=== PATIENT | male | born 1955 | race Caucasian/White ===

== ENCOUNTER 2020-11-06 14:29 | Emergency (ER) | payer MEDICARE ==
[~2020-11-06] VITALS: Ht 185.4 cm; Wt 145.0 kg
[2020-11-06 14:34] VITALS: BP 164/67
[2020-11-06] MEDS ORDERED: LIDOCAINE 2% JELLY 10ML IN APPLICATOR. MM ONE (14:45)
[2020-11-06] MEDS ORDERED: oxyCODONE/APAP 5/325 1 TAB TABLET PO ONE (14:45)
--- NOTE | 2020-11-06 15:18 | PHYS DOC ---
Past History Past Medical History: Cancer, Other Additional Past Medical Histor: colon cancer Past Surgical History: Colectomy Alcohol Use: None Adult General Chief Complaint Chief Complaint: BLOOD IN URINE [facility] HPI Patient is a 65-year-old male who presents to the emergency room complaining of bleeding from his urethra. Patient states that that they replace his Washburn yesterday and had a difficult time getting it in. He started having quite a bit of pain and bleeding and they took the catheter out. He continues to have a large amount of pain and continues to have bleeding from his urethra. He has some lower abdominal pressure. He is not urinated. He denies any other complaints or trauma. Review of Systems Review of Systems Complete ROS is negative unless otherwise documented in HPI Current Medications Current Medications Current Medications Medications (Trade) Dose Ordered Sig/Jayro Start Time Stop Time Status Last Admin Dose Admin Lidocaine HCl (Uro-Jet) 1 elian 1X ONCE 11/06/20 14:45 11/06/20 14:46 DC Oxycodone/ Acetaminophen (Percocet 5/325) 1 tab 1X ONCE 11/06/20 14:45 11/06/20 14:46 DC Allergies Allergies Allergies Coded Allergies Type Severity Reaction Last Updated Verified No Known Drug Allergies 11/06/20 No Physical Exam Physical Exam General: Awake, alert, NAD. Well Nourished, well hydrated. Cooperative HEENT: Atraumatic, EOMI, PERRL, airway patent, moist oral mucosa Neck: Supple, trachea midline Respiratory: CTA bilaterally, normal effort, no wheezing/crackles CV: RRR, no murmur, cap refill <2 GI: Soft, nondistended, nontender, no masses : blood at meatus, testicles WNL MSK: No obvious deformities Skin: Warm, dry, intact Neuro: A&O x3, speech NL, sensory and motor grossly intact, no focal deficits Psych: Normal affect, normal mood, not suicidal or homicidal Current Patient Data Vital Signs Vital Signs Date Time Temp Pulse Resp B/P (MAP) Pulse Ox O2 Delivery O2 Flow Rate FiO2 11/06/20 14:34 99.0 75 24 164/67 (99) 94 Room Air EKG EKG [] Radiology/Procedures Radiology/Procedures [] Heart Score Risk Factors: Risk Factors: DM, Current or recent (<one month) smoker, HTN, HLP, family history of CAD, obesity. Risk Scores: Risk Factors: DM, Current or recent (<one month) smoker, HTN, HLP, family hist ory of CAD, obesity. Course & Med Decision Making Course & Med Decision Making Pertinent Labs and Imaging studies reviewed. (See chart for details) Patient is a 65-year-old male who presents to the emergency room complaining of pain and bleeding after a catheter was taken out. Is likely that he had a traumatic removal and is bleeding from this. It is less likely that he is having bleeding from the bladder. Patient does take Eliquis which likely is part of the reason patient is having so much bleeding. Will replace the patient's Washburn to determine if he is having bleeding from the bladder and to treat any urethral injury. Catheter was replaced and urine cleared. No bleeding around catheter. Patient's test results and vitals while in the ED were fully reviewed and discussed with the patient. Patient is stable and at this time does not need admission to the hospital. We have discussed strict return precautions and the importance of following up with their Primary Care Physician. Patient stated understanding and was given an opportunity to ask any questions. Patient is in agreement with plan. Dragon Disclaimer Dragon Disclaimer This electronic medical record was generated, in whole or in part, using a voice recognition dictation system. Departure Departure: Impression: Primary Impression: Bleeding from urethra in male Disposition: 01 DC HOME SELF CARE/HOMELESS Condition: IMPROVED Referrals: PCP,UNKNOWN (PCP) Patient Instructions: Indwelling Urinary Catheter Care-Brief JOSEPH ROBERTS MD Nov 06, 2020 15:18
== END 2020-11-06 17:09 | disposition home or self-care (01) ==
LOC: ER 14:29
DX: N36.8 Other specified disorders of urethra (principal); Z90.49 Acquired absence of other specified parts of digestive tract
CPT/HCPCS: 51702; 99284

== ENCOUNTER → 2020-11-17 | Emergency (ER) | payer MEDICARE ==
[~2020-11-17] VITALS: Ht 185.4 cm; Wt 145.0 kg
[~2020-11-17] MED LIST: IV NORMAL SALINE 1,000ML 1,000 ML IV ONE; LIDOCAINE 2% JELLY 10ML IN APPLICATOR. MM ONE; MAGNESIUM SULFATE 2GM 50 ML IV ONE; ONDANSETRON PF 4 MG/2 ML VIAL. IVP ONE; ONDANSETRON PF 4 MG/2 ML VIAL. ONE
[2020-11-17 08:04] LABS: CALCIUM 9.4 mg/dL (8.5-10.1); CREATININE 0.9 mg/dL (0.7-1.3); GFR 84.2; POTASSIUM 4.3 mmol/L (3.5-5.1)
[2020-11-17 08:05] LABS: BASO % 1 % (0-3); EOS # 0.1 x10^3/uL (0.0-0.7); EOS % 3 % (0-3); HEMATOCRIT 41.4 % (39.0-53.0); HEMOGLOBIN 13.2 g/dL (13.0-17.5); LYMPH # 0.8 x10^3/uL (1.0-4.8); LYMPH % 15 % (24-48); MEAN CORPUSCULAR HEMOGLOBIN 25 pg (25-35); MEAN CORPUSCULAR HGB CONC 32 g/dL (31-37); MEAN CORPUSCULAR VOLUME 80 fL (79-100); MONO # 0.5 x10^3/uL (0.0-1.1); MONO % 8 % (0-9); NEUT # 4.2 x10^3uL (1.8-7.7); NEUT % 74 % (31-73); PLATELET COUNT 309 x10^3/uL (140-400); RED BLOOD COUNT 5.18 x10^6/uL (4.30-5.70); WHITE BLOOD COUNT 5.7 x10^3/uL (4.0-11.0)
[2020-11-17 08:10] LABS: ALBUMIN 2.8 g/dL (3.4-5.0); ALBUMIN/GLOBULIN RATIO 0.7 (1.0-1.7); MAGNESIUM 1.6 mg/dL (1.8-2.4); TOTAL BILIRUBIN 0.4 mg/dL (0.2-1.0); TOTAL PROTEIN 7.1 g/dL (6.4-8.2)
--- NOTE | 2020-11-17 08:41 | PHYS DOC ---
Past History Past Medical History: Cancer, Other Additional Past Medical Histor: colon cancer, chronic indwelling catheter Past Surgical History: Colectomy Additional Past Surgical Histo: bone infection in back, bone removed. Alcohol Use: None General Adult EDM: Chief Complaint: URINE CATHETER PROBLEM HPI: HPI: Patient is a 65 year old male who presents with right sided flank pain and bleeding from his indwelling catheter. He was in the ED on 11/06/20 for complaint of bleeding from his catheter. His catheter replaced during this visit, it has not been exchanged since that time. He reports that he has had continued bleeding through and around his catheter since this time. The bleeding around his catheter worsened this morning. He is on blood thinner (eloquis). This morning he developed acute onset of 9/10 right sided flank pain that he described as dull and aching in nature. He has a difficult time localizing any associated pain due to loss of sensation second to lumbar disc removal. He has an ostomy s/p colectomy for colon cancer. Approximately 6 weeks ago he had surgery on his hip for an infection in the bone at and has been on daily IV antibiotics since that time. He denies current fever of chills, nausea, vomiting, chest pain, palpitations, shortness of breath, cough. Review of Systems: Review of Systems: Constitutional: Denies fever or chills HENT: Denies nasal congestion or sore throat Respiratory: Denies cough or shortness of breath Cardiovascular: Denies chest pain or palpitations GI: Denies abdominal pain, nausea, or vomiting : Unable to report sensation of dysuria. Endorses hematuria Musculoskeletal: Endorses back pain, hip pain. Denies other joint pain Integument: Denies rash or skin lesions Neurologic: Denies headache, or new focal weakness or sensory changes Complete systems were reviewed and found to be within normal limits, except as documented in this note. Current Medications: Current Meds: Current Medications Medications (Trade) Dose Ordered Sig/[facility] Start Time Stop Time Status Last Admin Dose Admin Fentanyl Citrate (Fentanyl 2ml Vial) 50 mcg 1X ONCE 11/17/20 08:00 11/17/20 08:03 DC 11/17/20 08:09 50 MCG Lidocaine HCl (Uro-Jet) 1 elian 1X ONCE 11/17/20 08:15 11/17/20 08:19 DC 11/17/20 08:23 1 ELIAN Magnesium Sulfate 50 ml @ 25 mls/hr 1X ONCE 11/17/20 08:15 11/17/20 10:14 11/17/20 08:24 25 MLS/HR Ondansetron HCl (Zofran) 4 mg STK-MED ONCE 11/17/20 08:13 11/17/20 08:13 DC Sodium Chloride 1,000 ml @ 1,000 mls/hr 1X ONCE 11/17/20 07:45 11/17/20 08:44 11/17/20 08:09 1,000 MLS/HR Allergies: Allergies: Allergies Coded Allergies Type Severity Reaction Last Updated Verified ciprofloxacin Allergy Unknown Swelling 11/17/20 Yes Physical Exam: PE: Constitutional: Well developed, overweight, mild distress due to main, non-toxic appearance HENT: Normocephalic, atraumatic Eyes: PERRL, EOMI, conjunctiva normal, no discharge Neck: no tenderness, supple Lungs & Thorax: No respiratory distress, equal chest rise and fall Abdomen: Soft, no tenderness Skin: Warm, dry, no erythema, no rash Back: R flank tenderness, unable to examine for CVA tenderness Extremities: No tenderness, warm, no edema, 2+ posterior tibal pulse b/l Neurologic: Alert and oriented X 3, normal motor function, normal sensory function, no focal deficits noted Psychologic: Affect normal, judgment normal Current Patient Data: Labs: Laboratory Tests Test 11/17/20 07:40 11/17/20 07:53 White Blood Count 5.7 x10^3/uL (4.0-11.0) Red Blood Count 5.18 x10^6/uL (4.30-5.70) Hemoglobin 13.2 g/dL (13.0-17.5) Hematocrit 41.4 % (39.0-53.0) Mean Corpuscular Volume 80 fL (79-100) Mean Corpuscular Hemoglobin 25 pg (25-35) Mean Corpuscular Hemoglobin Concent 32 g/dL (31-37) Red Cell Distribution Width 23.0 % (11.5-14.5) H Platelet Count 309 x10^3/uL (140-400) Neutrophils (%) (Auto) 74 % (31-73) H Lymphocytes (%) (Auto) 15 % (24-48) L Monocytes (%) (Auto) 8 % (0-9) Eosinophils (%) (Auto) 3 % (0-3) Basophils (%) (Auto) 1 % (0-3) Neutrophils # (Auto) 4.2 x10^3uL (1.8-7.7) Lymphocytes # (Auto) 0.8 x10^3/uL (1.0-4.8) L Monocytes # (Auto) 0.5 x10^3/uL (0.0-1.1) Eosinophils # (Auto) 0.1 x10^3/uL (0.0-0.7) Basophils # (Auto) 0.0 x10^3/uL (0.0-0.2) Prothrombin Time 9.9 SEC (9.4-11.4) Prothrombin Time INR 1.0 (0.9-1.1) Activated Partial Thromboplast Time 28 SEC (23-33) Sodium Level 137 mmol/L (136-145) Potassium Level 4.3 mmol/L (3.5-5.1) Chloride Level 101 mmol/L (98-107) Carbon Dioxide Level 30 mmol/L (21-32) Anion Gap 6 (6-14) Blood Urea Nitrogen 20 mg/dL (8-26) Creatinine 0.9 mg/dL (0.7-1.3) Estimated GFR (Cockcroft-Gault) 84.2 BUN/Creatinine Ratio 22 (6-20) H Glucose Level 106 mg/dL (70-99) H Calcium Level 9.4 mg/dL (8.5-10.1) Magnesium Level 1.6 mg/dL (1.8-2.4) L Total Bilirubin 0.4 mg/dL (0.2-1.0) Aspartate Amino Transferase (AST) 20 U/L (15-37) Alanine Aminotransferase (ALT) 23 U/L (16-63) Alkaline Phosphatase 153 U/L (46-116) H Total Protein 7.1 g/dL (6.4-8.2) Albumin 2.8 g/dL (3.4-5.0) L Albumin/Globulin Ratio 0.7 (1.0-1.7) L Lactic Acid Level 0.9 mmol/L (0.4-2.0) Vital Signs: Vital Signs Date Time Temp Pulse Resp B/P (MAP) Pulse Ox O2 Delivery O2 Flow Rate FiO2 11/17/20 08:09 26 95 11/17/20 07:35 98.1 62 150/75 (100) EKG: EKG: [] Radiology/Procedures: Radiology/Procedures: PROCEDURE: CT ABDOMEN PELVIS WO CONTRAST PQRS Compliance Statement: One or more of the following individualized dose reduction techniques were utilized for this examination: 1. Automated exposure control 2. Adjustment of the mA and/or kV according to patient size 3. Use of iterative reconstruction technique CT ABDOMEN+PELVIS WO Clinical Indication: Reason: right flank pain, hematuria Comparison: None. Technique: Helical CT imaging of the abdomen and pelvis is performed without IV or oral contrast. Findings: Evaluation of solid organs and bowel is limited without oral and IV contrast, decreasing sensitivity for detection of pathology. Lung bases are mostly clear. Cardiac size is normal. Layering hyperdensity in the gallbladder may be tiny stones or sludge. No gallbladder wall thickening. The liver, spleen, pancreas, adrenal glands, and abdominal aorta caliber are normal. There is bilateral perinephric stranding. There is no renal or ureteral calculus. There is no hydronephrosis. No obvious abnormality of the stomach. There is left abdomen ostomy. There is no dilated small bowel. There is fat necrosis in the left upper abdomen, image 33. There are postsurgical changes of abdominoperineal resection. There has been resection of the sacrum. There is fluid density in the resection cavity that may be chronic seroma. There is no colon wall thickening. There is a Washburn catheter in the urinary bladder. There is hyperdensity in the lumen of the urinary bladder. There is mild urinary bladder wall thickening. Degenerative spondylosis of the thoracolumbar spine. IMPRESSION: 1. There is hyperdensity in the lumen of the urinary bladder that may be hematoma. There is mild urinary bladder wall thickening, cannot exclude cystitis. 2. There has been resection of the sacrum. There is fluid density in the resection cavity that may be chronic seroma. 3. There is gallbladder sludge or tiny stones. Electronically signed by: Jd Agustin MD (11/17/2020 9:51 AM) [id number] Course & Med Decision Making: Course & Med Decision Making Pertinent Labs and Imaging studies reviewed. (See chart for details) This 65 yo male presents to the ED with right sided flank pain and bleeding from around his indwelling catheter. He is on blood thinner eloquis. During his stay the patient developed nausea and was provided antiemetics and fentanyl for pain control. His indwelling catheter was removed, yielding a large obstructive blood clot. The patient reported immediate relief of flank pain and nausea upon removal. CBC, CMP, lactic acid, magnesium, and coags ordered to evaluate for signs of infection, anemia, electrolyte, kidney, coagulation abnormalities. Lab work revealed hypomagnesemia, but no significant abnormalities suggestive of acute pathology. IVF and magnesium replacement provided during ED stay. A CT was ordered to evaluate for nephrolithiasis in the setting of acute unilateral flan k pain and gross hematuria. The CT revelaed bilateral hydronephrosis, a hematona in the bladder with bladder wall thickening but no visible stones. UA results not concerning for signs of urinary tract infection. Patient stable for discharge with outpatient follow-up with PCP and urology. Discussed findings and plan with patient, who acknowledges understanding and agreement. Kindra Disclaimer: Kindra Disclaimer: This electronic medical record was generated, in whole or in part, using a voice recognition dictation system. Departure Departure: Impression: Primary Impression: Hematuria Qualified Codes: R31.0 - Gross hematuria Additional Impressions: Flank pain Acute urinary obstruction Disposition: 01 DC HOME SELF CARE/HOMELESS (back to [facility] ) Condition: IMPROVED Referrals: BETSEY BERRY (PCP) Patient Instructions: Flank Pain, [id number], Washburn Catheter Care, Adult, Hematuria, Adult, Urinary Retention, Acute, Male, [id number] Additional Instructions: Call Dr. Abelino Renee - Urology [phone] to be seen in the next 3-5 days or as needed. VIKTOR LUCAS DO Nov 17, 2020 08:41
[2020-11-17 09:22] LABS: CLARITY,URINE BLOODY; COLOR,URINE RED
[2020-11-17 09:23] LABS: BACTERIA,URINE 0 /HPF (0-FEW); RBC,URINE >40 /HPF (0-2); SQUAMOUS EPITHELIAL CELL,UR OCC /LPF
[2020-11-17 10:00] VITALS: BP 128/67
--- NOTE | 2020-11-17 10:01 | RAD ---
PQRS Compliance Statement: One or more of the following individualized dose reduction techniques were utilized for this examinat ion: 1. Automated exposure control 2. Adjustment of the mA and/or kV according to patient size 3. Use of iterative reconstruction technique CT ABDOMEN+PELVIS WO Clinical Indication: Reason: right flank pain, hematuria Comparison: None. Technique: Helical CT imaging of the abdomen and pelvis is performed without IV or oral contrast. Findings: Evaluation of solid organs and bowel is limited without oral and IV contrast, decreasing sensitivity for detection of pathology. Lung bases are mostly clear. Cardiac size is normal. Layering hyperdensity in the gallbladder may be tiny stones or sludge. No gallbladder wall thickening . The liver, spleen, pancreas, adrenal glands, and abdominal aorta caliber are normal. There is bilateral perinephric stranding. There is no renal or ureteral calculus. There is no hydrone phrosis. No obvious abnormality of the stomach. There is left abdomen ostomy. There is no dilated small bowel. There is fat necrosis in the left upper abdomen, image 33. There are postsurgical changes of abdomin operineal resection. There has been resection of the sacrum. There is fluid density in the resection cavity that may be chronic seroma. There is no colon wall thickening. There is a Washburn catheter in the urinary bladder. There is hyperdensity in the lumen of the urinary b ladder. There is mild urinary bladder wall thickening. Degenerative spondylosis of the thoracolumbar spine. IMPRESSION: 1. There is hyperdensity in the lumen of the urinary bladder that may be hematoma. There is mild uri nary bladder wall thickening, cannot exclude cystitis. 2. There has been resection of the sacrum. There is fluid density in the resection cavity that may b e chronic seroma. 3. There is gallbladder sludge or tiny stones. Electronically signed by: Jd Agustin MD (11/17/2020 9:51 AM) [id number]
[2020-11-17 10:03] LABS: ANISOCYTOSIS SLIGHT; MICROCYTOSIS SLIGHT; POLYCHROMASIA PRESENT; TOXIC GRANULATION PRESENT
[2020-11-17 10:04] LABS: OVALOCYTES OCC; PLT ESTIMATE ADEQUATE (ADEQUATE); TEAR DROP CELLS OCC
== END ==
LOC: ER 07:29
DX: N13.8 Other obstructive and reflux uropathy (principal); R31.0 Gross hematuria; R10.9 Unspecified abdominal pain; T83.83XA Hemorrhage due to genitourinary prosthetic devices, implants and grafts, initial encounter; Z90.49 Acquired absence of other specified parts of digestive tract; Z88.1 Allergy status to other antibiotic agents
CPT/HCPCS: 36415; 51702; 74176; 80053; 81001; 83605; 83735; 85025; 85610; 85730; 96365; 96366; 96375; 99285; J2405; J3010; J3475; J7030